=== PATIENT | male | born 1935 | race Caucasian/White ===

== ENCOUNTER 2018-04-26 20:32 | Observation (INO) ==
[2018-04-26 20:52] LABS: Basophils # 0.1 10*3/uL (0.0-0.2); Basophils % 0.5 % (0.0-0.8); Eosinophils # 0.1 10*3/uL (0.0-0.87); Eosinophils % 0.7 % (0.00-10.9); Hematocrit 48.3 VOL% (42.0-52.0); Hemoglobin 16.3 GM/DL (14.0-18.0); Immature Granulocytes % 0.2 %; Immature Granulocytes Absolute 0.03 #; Lymphocytes # 2.6 10*3/uL (1.4-4.0); Lymphocytes % 20.4 % (21.2-54.2); Mean Corpuscular HGB Conc 33.7 GM/DL (32-36); Mean Corpuscular Hemoglobin 27 PG (27-34); Mean Corpuscular Volume 80.6 FL (87-102); Mean Platelet Volume 10.3 FL (9.6-12.0); Monocytes # 1.1 10*3/uL (0.11-0.8); Monocytes % 8.7 % (1.7-12.7); Neutrophils # 8.9 10*3/uL (1.4-7.4); Neutrophils % 69.5 % (38.7-73.9); Platelet Count 195 T/CUMM (130-400); Red Blood Count 5.99 MC/CUMM (3.8-5.5); Red Cell Distribution Width 13.1 % (9.3-17.3); White Blood Count 12.8 T/CUMM (4-12)
[2018-04-26 21:02] LABS: INR 0.9; PT Patient Result 10.3 SECS; Partial Thromboplastin Time 26.4 SECS (0-40)
[2018-04-26] MEDS ORDERED: NITROGLYCERIN SL 0.4 MG TABLET SL STA (21:10)
[2018-04-26 21:12] LABS: Alanine Aminotransferase 27 U/L (16-61); Alkaline Phosphatase 60 U/L (45-117); Aspartate Amino Transferase 21 U/L (0-37); Blood Urea Nitrogen 25 MG/DL (7-18); Calcium 9.1 MG/DL (8.5-10.1); Glucose 271 MG/DL (74-106); Osmolality,Calculated 281.2 MOS/KG (273-304); Potassium 4.1 MMOL/L (3.5-5.1); Sodium 134 MMOL/L (136-145); Total Protein 7.5 G/DL (6.4-8.3); Troponin I < 0.015 NG/ML (0.00-0.045)
[2018-04-26 22:24] LABS: Apearance,Urine CLEAR (Clear); Bilirubin,Urine Negative (Negative); Blood, Urine Negative (Negative); Glucose,Urine (UA) >=500 mg/dL (Negative); Ketones,Urine 20 mg/dL (Negative); Mucus,Urine Occasional /LPF (Occasional); Nitrite,Urine Negative (Negative); Protein,Urine Negative; RBC,Urine 2 /HPF (0-4); Urine Color Yellow (Yellow); Urine Specific Gravity 1.016 (1.001-1.035); Urine Urobilinogen < 2.0 EU/DL (0.2-1.0); WBC,Urine 10 /HPF (0-6)
[2018-04-26] MEDS ORDERED: POTASSIUM CHLORIDE 20 MEQ TABLET PO PRN (22:35)
[2018-04-26] MEDS ORDERED: MAGNESIUM SULF RIDER 4 GM in PREMIX 1 EACH IV PRN (22:35)
[2018-04-26] MEDS ORDERED: NICOTINE 21 MG/24 HR PATCH TRANSDERM PRN (22:35)
[2018-04-26] MEDS ORDERED: MORPHINE 4 MG/1 ML VIAL IV PRN (22:35)
[2018-04-26] MEDS ORDERED: GLUCAGON 1 MG VIAL IM PRN (22:35)
[2018-04-26] MEDS ORDERED: DEXTROSE 50% 25 GM/50 ML SYRINGE IV PRN (22:35)
[2018-04-26] MEDS ORDERED: ONDANSETRON 4 MG/2 ML VIAL IV PRN (22:35)
[2018-04-26] MEDS ORDERED: diphenhydrAMINE CAP 25 MG CAPSULE PO PRN (22:35)
[2018-04-26] MEDS ORDERED: BISACODYL 5 MG TABLET PO PRN (22:35)
[2018-04-26] MEDS ORDERED: MAGNESIUM SULF RIDER 2 GM in PREMIX 1 EACH IV PRN (22:35)
[2018-04-26] MEDS ORDERED: guaiFENesin/DM ER 600-30 MG TABLET PO PRN (22:35)
[2018-04-26] MEDS ORDERED: ACETAMINOPHEN 325 MG TABLET PO PRN (22:35)
[2018-04-26] MEDS ORDERED: SODIUM CHLORIDE 0.9% 1,000 ML IV SCH (23:00)
[2018-04-27 00:23] LABS: Risk Ratio 2.3; Thyroid Stimulating Hormone 1.97 uIU/ml (0.358-3.74); VLDL CHOLESTEROL 25.4 MG/DL
[2018-04-27] MEDS ORDERED: LEVOFLOXACIN INJ 750 MG in PREMIX 1 EACH IV SCH (00:30)
[2018-04-27 00:33] LABS: Basophils % 0.4 % (0.0-0.8); Eosinophils # 0.1 10*3/uL (0.0-0.87); Eosinophils % 0.6 % (0.00-10.9); Hematocrit 44.8 VOL% (42.0-52.0); Hemoglobin 15.3 GM/DL (14.0-18.0); Immature Granulocytes % 0.6 %; Immature Granulocytes Absolute 0.06 #; Lymphocytes % 20.8 % (21.2-54.2); Mean Corpuscular HGB Conc 34.2 GM/DL (32-36); Mean Corpuscular Hemoglobin 28 PG (27-34); Mean Corpuscular Volume 80.7 FL (87-102); Mean Platelet Volume 10.6 FL (9.6-12.0); Monocytes # 0.6 10*3/uL (0.11-0.8); Monocytes % 6.5 % (1.7-12.7); Neutrophils # 6.8 10*3/uL (1.4-7.4); Neutrophils % 71.1 % (38.7-73.9); Platelet Count 178 T/CUMM (130-400); Red Blood Count 5.55 MC/CUMM (3.8-5.5); Red Cell Distribution Width 13.1 % (9.3-17.3); White Blood Count 9.6 T/CUMM (4-12)
[2018-04-27 00:50] LABS: Albumin 3.8 G/DL (3.4-5.0); Bilirubin,Total 0.6 MG/DL (0.2-1.0); Calcium 8.8 MG/DL (8.5-10.1); Total Protein 6.9 G/DL (6.4-8.3); Troponin I 0.029 NG/ML (0.00-0.045)
[2018-04-27] MEDS: INSULIN REGULAR 100 UNIT/ML SUBCUT SCH ×3 (01:05→13:01)
[2018-04-27] MEDS ORDERED: ASPIRIN 325 MG TABLET PO SCH (09:00)
[2018-04-27] MEDS ORDERED: LOSARTAN 25 MG TABLET PO SCH (09:00)
[2018-04-27] MEDS ORDERED: ENOXAPARIN 40 MG/0.4 ML SYRINGE SUBCUT SCH (09:00)
[2018-04-27] MEDS ORDERED: METOPROLOL TARTRATE 25 MG TABLET PO SCH (09:00)
[2018-04-27] MEDS ORDERED: PANTOPRAZOLE 40 MG TABLET PO SCH (09:00)
[2018-04-27] MEDS ORDERED: ASPIRIN EC 81 MG TABLET PO SCH (09:00)
[2018-04-27] MEDS ORDERED: REGADENOSON 0.4 MG/5 ML SYRINGE IV ONE (09:41)
[2018-04-27 11:34] VITALS: BP 168/78
[2018-04-27 11:37] LABS: Troponin I 0.052 NG/ML (0.00-0.045)
[2018-04-27] MEDS ORDERED: ATORVASTATIN 20 MG TABLET PO SCH (21:00)
[2018-04-27] MEDS ORDERED: ATORVASTATIN 40 MG TABLET PO SCH (21:00)
== END 2018-04-27 13:00 | disposition home or self-care (01) ==
LOC: N.ED 20:32 → N.EDINP 20:32 → N.TELEN 23:44
PROVIDERS: ADMIT Internal Medicine Geriatric Medicine; ATTEND Internal Medicine Geriatric Medicine